=== PATIENT | male | born 1990 | race Asian ===

== ENCOUNTER 2017-03-14 04:37 | Emergency (ER) | payer OTHER ==
[~2017-03-14] VITALS: Ht 162.6 cm; Wt 73.0 kg
[2017-03-14] MEDS ORDERED: FAMOTIDINE 20MG/2ML VIAL IV ONE (05:15)
[2017-03-14] MEDS ORDERED: DIPHENHYDRAMINE 50MG/ML VIAL IV ONE (05:15)
[2017-03-14] MEDS ORDERED: METHYLPREDNISOLONE SOD SUCC 125 MG/2 ML VIAL IV ONE (05:15)
[2017-03-14 07:10] VITALS: BP 121/69
== END 2017-03-14 07:12 | disposition home or self-care (01) ==
LOC: ER 04:39
DX: T14.8 Other injury of unspecified body region (principal); L50.9 Urticaria, unspecified; W57.XXXA Bitten or stung by nonvenomous insect and other nonvenomous arthropods, initial encounter; Y93.89 Activity, other specified; Y92.59 Other trade areas as the place of occurrence of the external cause
CPT/HCPCS: 96374; 96375; 99284; J1200; J2930; J3490; Z7610